=== PATIENT | male | born 1965 | race Caucasian/White ===

== ENCOUNTER 2025-04-17 14:05 | Emergency (ER) | payer MEDICAID ==
[~2025-04-17] VITALS: Ht 165.1 cm; Wt 82.0 kg
[2025-04-17 14:11] VITALS: TEMP 95.9
--- NOTE | 2025-04-17 14:15 | Physician Documentation ---
History of Present Illness ~ Stated Complaint: SZ Time Seen by MD: 14:14 HPI 59-year-old male with a history of seizure disorder. presenting with a reported seizure. Per EMS, the patient arrives from the [place], had a witnessed tonic-clonic seizure for several minutes. The patient reported a history of seizures, states he has a seizure every couple of months. He is not on seizure medications. Blood glucose was in the 80s. Here in the ED, he reports feeling nauseous. He denies having a headache. No head or neck injury. He did not bite his tongue. He denies any fevers or infectious symptoms. No abdominal pain. He does drink alcohol regularly but denies any history of withdrawal. Medication Reconciliation Allergies: Coded Allergies: No Known Allergies (Unverified , 04/17/25) Review of Systems Constitutional: Denies: fever Gastrointestinal: Reports: nausea; Denies: abdominal pain Physical Exam Physical Exam General: This is a disheveled middle-aged man lying quietly in the bed HEENT: Atraumatic, oropharynx is moist. No tongue laceration or tongue fasciculations Heart: Regular rate and rhythm, normal-appearing peripheral perfusion Lungs: Clear breath sounds bilateral, no significant wheezing, normal work of breathing, normal oxygen saturation on room air Abdomen: Soft, nondistended Extremities: No traumatic findings to the extremities Neuro: Alert and oriented to self and location, moves all extremities, follows commands Progress Results/Orders Results/Orders Orders - CLAUDINE NAIDU MD Potassium Cl 20meq In 1/2 Ns (Potassium (04/17/25 15:45) Ketorolac Trometh 15mg/Ml Vial (Toradol (04/17/25 17:45) Potassium Cl Sr Tablet (K-Dur Tablet) (04/17/25 17:45) Completed Orders - CLAUDINE NAIDU MD Ondansetron Inj. (Zofran 4mg/2ml Vial) (04/17/25 14:35) Cbc/Diff (04/17/25 14:32) CMP (04/17/25 14:32) Drug Screen, Urine (04/17/25 14:32) Ethanol (04/17/25 14:32) Normal Saline 1000ml (0.9% Sodium Chlori (04/17/25 15:45) MG (04/17/25 14:28) Medications Received in ER Medications (Trade) Dose Ordered Sig/Karla Route PRN Reason Start Time Stop Time Status Last Admin Dose Admin (Zofran 4mg/2ml vial) 4 mg ONCE ONCE IV 04/17/25 14:35 04/17/25 14:36 DC 04/17/25 14:39 4 MG Sodium Chloride 1,000 ml @ 1,000 mls/hr ONCE ONCE IV 04/17/25 15:45 04/17/25 16:44 DC 04/17/25 15:49 1,000 MLS/HR Potassium Chloride/Sodium Chloride 1,000 ml @ 100 mls/hr Q10H IV 04/17/25 15:45 04/17/25 16:27 100 MLS/HR Vital Signs 04/17/25 04/17/25 04/17/25 04/17/25 14:11 15:15 15:52 16:33 Temp 95.9 Pulse 62 86 67 Resp 16 15 30 16 B/P (MAP) 110/66 144/80 (101) 135/90 (105) Pulse Ox 92 98 97 O2 Flow Rate 0 0 Laboratory Tests Test 04/17/25 14:26 04/17/25 14:28 04/17/25 16:31 Glucometer 88 White Blood Count 4.7 Red Blood Count 3.79 L Hemoglobin 13.1 L Hematocrit 37.0 L Mean Corpuscular Volume 97.5 Mean Corpuscular Hemoglobin 34.6 H Mean Corpuscular Hemoglobin Concent 35.5 Red Cell Distribution Width 14.1 Platelet Count 280 Mean Platelet Volume 7.5 Neutrophils (%) (Auto) 42.9 Lymphocytes (%) (Auto) 44.0 Monocytes (%) (Auto) 11.0 Eosinophils (%) (Auto) 1.3 Basophils (%) (Auto) 0.8 Neutrophils # (Auto) 2.0 Lymphocytes # (Auto) 2.1 Monocytes # (Auto) 0.5 Eosinophils # (Auto) 0.1 Basophils # (Auto) 0.0 CBC Comment Sodium Level 145 Potassium Level 2.7 *L Chloride Level 111 H Carbon Dioxide Level 25.3 Anion Gap 9 Blood Urea Nitrogen 8 Creatinine 1.07 Estimated GFR/1.73 m2 70 BUN/Creatinine Ratio 7.5 L Glucose Level 83 Calcium Level 8.7 Magnesium Level 2.1 Total Bilirubin 0.4 Aspartate Amino Transf (AST/SGOT) 27 Alanine Aminotransferase (ALT/SGPT) 40 Alkaline Phosphatase 54 Total Protein 6.3 L Albumin 3.3 L Globulin 3.0 Albumin/Globulin Ratio 1.1 Chemistry Comments Ethyl Alcohol Level 230 H Urine Opiates Screen Negative Urine Methadone Screen Negative Urine Fentanyl Screen Negative Urine Barbiturates Screen Negative Urine Phencyclidine Screen Negative Urine Amphetamines Screen Negative Urine Benzodiazepines Screen Negative Urine Cocaine Screen Negative Urine Cannabinoids Screen Positive Drug Screen Comment EKG/XRAY/CT/US/VASC/MRI EKG : Additional Comment I personally interpreted the EKG and this shows: Sinus rhythm, rate 58, QTC 496, right bundle-branch block Medical Decision Making Differential Dx:Considerations: Include: Hyperventilation, Psychogenic seizure, Due to alcohol withdrawl, Due to closed head injury, Due to drug ingestion, Epilepsy-break through Additional Comment The patient presents with a reported seizure. Here in the ED he does not appear postictal, denies any injuries or other significant complaints. Labs show mild hypokalemia and he was given IV and oral potassium. He was also given hydration. After observation, he continued to have no significant complaints and requested to leave. It is unclear whether he had a true seizure, but he does report a history of intermittent seizures and does not seem interested in antiseizure medications. He will be discharged with return precautions. Departure Time of Disposition: 17:45 Disposition: 01 HOME / SELF CARE / HOMELESS Impression: Primary Impression: Alcoholic intoxication Additional Impression: Seizure Condition: Improved Discharge Instructions: Seizure, Adult Referrals: NO PRIMARY CARE PROVIDER (PCP) Education Educated: Patient Educated regarding: diagnosis, need for follow up Signature Scribe Signature: sudeep Attestation: CLAUDINE Bates MD Apr 17, 2025 14:15
[2025-04-17] MEDS: ondansetron/PF 4mg/2ml inj IV ONE (14:39)
[2025-04-17 14:57] LABS: MEAN PLATELET VOLUME 7.5 FL (7.4-10.4); RED CELL DISTRIBUTION WIDTH 14.1 % (11.5-14.5)
[2025-04-17 15:24] LABS: CREATININE 1.07 MG/DL (0.60-1.10); ETHANOL 230 MG/DL (<10); TOTAL CARBON DIOXIDE 25.3 MMOL/L (24-32); eCRCL 63 ML/MIN; eGFR 70 ML/MIN
[2025-04-17] MEDS: normal saline 1000ml 1,000 ML IV ONE (15:49)
[2025-04-17] MEDS: potassium cl 20mEq in 1/2 NS 1,000 ML IV SCH (16:27)
--- NOTE | 2025-04-17 17:30 | ELECTROCARDIOGRAPH REPORT ---
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
[2025-04-17 17:36] LABS: URINE AMPHETAMINE SCREEN NEGATIVE (Neg); URINE BARBITUATE SCREEN NEGATIVE (Neg); URINE BENZODIAZEPINES SCREEN NEGATIVE (Neg); URINE CANNABINOID SCREEN POSITIVE (Neg); URINE COCAINE SCREEN NEGATIVE (Neg); URINE METHADONE SCREEN NEGATIVE (Neg); URINE OPIATE SCREEN NEGATIVE (Neg); URINE PHENCYCLIDINE SCREEN NEGATIVE (Neg)
[2025-04-17] MEDS: potassium Cl 20 mEq SR tablet PO STA (18:02)
[2025-04-17] MEDS: ketorolac trometh 15mg/ml vial 15 MG/ML ML IV ONE (18:03)
[2025-04-17 18:48] VITALS: BP 146/82; PULSE 78; RESP 17; O2SAT 95
== END 2025-04-17 18:51 | disposition home or self-care (01) ==
LOC: ER 14:06
DX: G40.909 Epilepsy, unspecified, not intractable, without status epilepticus (principal); F10.129 Alcohol abuse with intoxication, unspecified; R11.0 Nausea; Y90.9 Presence of alcohol in blood, level not specified
CPT/HCPCS: 36415; 80053; 80305; 80320; 82948; 83735; 85025; 93005; 96361; 96365; 96375; 99285; J1885; J2405; J3480; J7030

== ENCOUNTER 2025-04-21 07:36 | Inpatient (IN) | payer MEDICAID ==
[2025-04-21] VITALS (15 sets, daily range): BP systolic 94–121; BP diastolic 65–72; PULSE 73–98; RESP 22–42; TEMP 97.1–97.8; O2SAT 91–100
[~2025-04-21] VITALS: Ht 167.6 cm; Wt 67.0 kg
--- NOTE | 2025-04-21 07:40 | Physician Documentation ---
History of Present Illness General Chief Complaint: Shortness of Breath Stated Complaint: COPD Time Seen by MD: 07:40 OK to notify your PCP?: No Source: patient, RN/MD, EMS, RN notes reviewed Mode of Arrival: EMS Exam Limitations: no limitations History of Present Illness Initial Comments 59-year-old male, with a history of COPD and continuing tobacco abuse, presents via EMS from a local homeless longterm with complaints of shortness of breath that began on 0500 this morning. Patient has taken his normal inhalers without improvement. Additionally he has had an increased cough today but otherwise has been feeling well for the last few days. He also reports a history of anxiety. He denies any chest pain or fever. Medication Reconciliation Allergies: Coded Allergies: No Known Allergies (Unverified , 04/21/25) Miscellaneous Medications Albuterol Sulfate/Budesonide (Airsupra 90-80 Mcg Inhaler), (Reported) Past Medical History Past Medical History: COPD Past Surgical History: noncontributory Smoking: Cigarettes Lives In: Homeless Review of Systems All Other Systems at this time: Reviewed and Negative ROS shortness of breath as well as other positive symptoms as stated above in the HPI, otherwise all systems are reviewed and negative. Physical Exam Physical Exam Vital Signs: RN Vital Signs have been reviewed: Yes Pulse Oximetry Reflects: adequate oxygenation Physical Exam VITALS: Reviewed and as above. GENERAL: Alert, moderate respiratory distress. HEENT: Normocephalic, atraumatic, PERRL, EOMI, dry mucosa RESPIRATORY: Moderate respiratory distress, expiratory wheezing, diminished breath sounds. CHEST: No accessory muscle use, slight sternal retractions CV: Tachycardic, regular rhythm, no edema, no murmur, No: JVD GI: Soft, non-tender, bowels sounds present, no rebound, guarding, or rigidity MUSCULOSKELETAL: No deformities, no edema SKIN: Warm and dry, no rash NEURO: Oriented x4, No motor or sensory deficit PSYCH: Very anxious mood and affect, no agitation Progress Progress Note 0930: Reevaluation: somewhat improved after treatment. Remains tachypneic with diminished breath sounds. 0935: Hospitalist paged. 0945: Case discussed with internal medicine resident, who agrees to evaluate the patient for admission. Results/Orders Reviewed/noted all lab results: Yes Results/Orders Orders - GERMAIN AN MD Electrocardiogram (04/21/25 07:43) Chest,Single View (04/21/25 07:43) Cont Nebulizer Treatment (04/21/25 07:50) Page Hospitalist (04/21/25 09:35) Fill Out Med Reconciliation (04/21/25 09:35) Completed Orders - OHLFS,GERMAIN Bashir MD Electrocardiogram (04/21/25 07:43) Cbc/Diff (04/21/25 07:43) Chest,Single View (04/21/25 07:43) BMP (04/21/25 07:43) Methylprednisolone Sod Succ (Solumedrol (04/21/25 07:45) Magnesium Sulf-Water 2g/50ml (Magnesium (04/21/25 07:45) Normal Saline 1000ml (0.9% Sodium Chlori (04/21/25 07:45) Ipratropium Nebule (Atrovent Nebule) (04/21/25 07:50) Albuterol 2.5mg/3ml Nebule (Proventil 2. (04/21/25 07:50) Lorazepam Tablet (Ativan Tablet) (04/21/25 09:10) Hs Troponin I W Calculations (04/21/25 09:35) PBNP (04/21/25 07:48) C-Reactive Protein (04/21/25 07:48) Vital Signs 04/21/25 04/21/25 04/21/25 07:39 07:57 08:59 Temp 97.3 Pulse 98 98 91 Resp 18 26 28 B/P (MAP) 146/93 Pulse Ox 100 99 Laboratory Tests Test 04/21/25 07:48 White Blood Count 10.3 Red Blood Count 3.99 L Hemoglobin 13.5 L Hematocrit 39.5 L Mean Corpuscular Volume 98.9 H Mean Corpuscular Hemoglobin 33.8 H Mean Corpuscular Hemoglobin Concent 34.1 Red Cell Distribution Width 14.5 Platelet Count 365 Mean Platelet Volume 8.0 Neutrophils (%) (Auto) 68.3 Lymphocytes (%) (Auto) 18.1 L Monocytes (%) (Auto) 12.8 H Eosinophils (%) (Auto) 0.1 Basophils (%) (Auto) 0.7 Neutrophils # (Auto) 7.0 Lymphocytes # (Auto) 1.9 Monocytes # (Auto) 1.3 H Eosinophils # (Auto) 0.0 Basophils # (Auto) 0.1 CBC Comment Sodium Level 144 Potassium Level 3.6 Chloride Level 108 H Carbon Dioxide Level 24.1 Anion Gap 12 Blood Urea Nitrogen 17 Creatinine 1.39 H Estimated GFR/1.73 m2 52 BUN/Creatinine Ratio 12.2 Glucose Level 114 H Calcium Level 9.5 Troponin I High Sensitivity 25 C-Reactive Protein 0.10 Pro-B-Type Natriuretic Peptide 1103 H Albumin 3.8 Procalcitonin < 0.05 Chemistry Comments EKG/XRAY/CT/US/VASC/MRI EKG : Additional Comment 0743: EKG interpreted by myself to show sinus tachycardia at a rate of 111 bpm. RBBB, LPFB, nonspecific ST changes, right axis deviation. Chest X-Ray : Additional Comments CHEST RADIOGRAPH Indication: SEPSIS Technique: Single frontal view of the chest was obtained Comparison: None FINDINGS: The cardiac silhouette is unremarkable. The lungs demonstrate perihilar airspace opacities. The pulmonary vasculature is prominent. There is no pleural effusion. There is no pneumothorax. Aortic atherosclerotic disease. IMPRESSION: vascular congestion and bilateral perihilar airspace opacities.Pulmonary Reviewed by myself. Heart Score: Heart Score Response (Comments) Value History Slightly Suspicious 0 EKG Repolarization Disturb 1 Age 45-64 1 Risk Factors No known risk factors 0 Troponin Normal limit 0 Total 2 Medical Decision Making Additional info obtained from: old records (no prior visits) Findings The patient is a 59-year-old male with a history of COPD who presents with shortness of breath and wheezing the patient was given nebulized albuterol and ipratropium in the emergency department patient was given IV steroids and IV magnesium. The patient continued to have hypoxia after treatments in the emergency department with oxygen saturations dropping down in the 80s 90s. Patient was in mild distress. The patient has no evidence of pneumonia on his chest x-ray the patient is chest x-ray was independently interpreted by me which demonstrated a normal cardiac silhouette normal mediastinum and normal-appearing lung bangura. His EKG was interpreted by me. His manager cardiac cath was interpreted as a sinus rhythm and in his pulse oximetry was interpreted as low and inadequate. Other etiologies were considered including cardiovascular disease the patient's cardiac enzymes and EKG were nonischemic. The patient has a improved but still remained somewhat hypoxic and would benefit from admission the patient will be admitted to the hospitalist case has been discussed with the hospitalist prior hospitalizations have been reviewed. Radiologist's interpretation of the x-ray was reviewed there was some discussion of per hilar opacities I do not believe the patient has a clinical pneumonia based on the imaging. The patient did require a continuous nebulization due to as moderate to severe respiratory distress initially the patient did require critical care time. Departure Time of Disposition: 09:40 Disposition: ADMITTED INPATIENT Admitted to Inpatient Unit: yes, to hospitalist Impression: Primary Impression: COPD exacerbation Condition: Fair Education Educated: Patient Educated regarding: diagnosis, treatment Critical Care Note Total Time (mins): 35 Critical Care Note The very real possibility of a deterioration of this patient's condition required the highest level of my preparedness for sudden, emergent intervention. I provided critical care services, which included medication orders, frequent reevaluations of the patient's condition and response to treatment, ordering and reviewing test results, and discussing the case with various consultants. Excludes time spent performing separately billable procedures. The critical care time associated with the care of the patient was 35 minutes excluding all other billable procedures. Signature Scribe Signature: Scribed for Germain An MD by Carlo Newman . 04/21/25 07:55 Attestation: The note accurately reflects work and decisions made by me.Germain An MD 04/22/25 06:57 GERMAIN AN MD Apr 21, 2025 07:40 CARLO RIVAS Apr 21, 2025 08:02
[2025-04-21] MEDS: normal saline 1000ML IV soln IVB ONE (07:53)
[2025-04-21] MEDS: magnesium sulf-water 2g/50mL 50 ML IV ONE (07:53)
[2025-04-21] MEDS: ipratropium 0.5 MG/2.5ML nebule IH ONE (07:55)
[2025-04-21] MEDS: albuterol 2.5 MG/3 ML nebule CONTNEB PRN (07:55)
[2025-04-21 08:13] LABS: CREATININE 1.39 MG/DL (0.60-1.10); TOTAL CARBON DIOXIDE 24.1 MMOL/L (24-32); eCRCL 50 ML/MIN; eGFR 52 ML/MIN
[2025-04-21 08:15] LABS: MEAN PLATELET VOLUME 8.0 FL (7.4-10.4); RED CELL DISTRIBUTION WIDTH 14.5 % (11.5-14.5)
--- NOTE | 2025-04-21 08:19 | RADIOLOGY REPORT ---
CHEST RADIOGRAPH Indication: SEPSIS Technique: Single frontal view of the chest was obtained Comparison: None FINDINGS: The cardiac silhouette is unremarkable. The lungs demonstrate perihilar airspace opacities. The pulmo nary vasculature is prominent. There is no pleural effusion. There is no pneumothorax. Aortic atheros clerotic disease. IMPRESSION: vascular congestion and bilateral perihilar airspace opacities.Pulmonary
--- NOTE | 2025-04-21 08:40 | ELECTROCARDIOGRAPH REPORT ---
[facility] Test Date: 2025-04-21 Test Time: 07:43:33 Pat Name: RAMAKRISHNA MATHIAS Department: EMERGENCY ROOM Room: ORTHO [facility] Gender: M [place] Constable: JACKIE : 1965 Requested By: GERMAIN FAN Order Number: [id number] Reading MD: Dr. Victor Manuel Oconnor Measurements Intervals [place] Rate: 111 P: 0 LA: 0 QRS: 96 QRSD: 144 T: 49 QT: 387 QTc: 526 Interpretive Statements Atrial flutter RBBB and LPFB Electronically Signed On 04-21-2025 19:35:[address] Victor Manuel Oconnor Please click the below link to view image of tracing.
[2025-04-21 10:48] LABS: PRO BRAIN NATRIURETIC PEPTIDE 1103 PG/ML (0-125)
[2025-04-21] MEDS ORDERED: magnesium hydroxide 30ml (MOM) UD suspension PO PRN (11:25)
[2025-04-21] MEDS ORDERED: magnesium sulf-water 2g/50mL 50 ML IV PRN (11:25)
[2025-04-21] MEDS ORDERED: potassium Cl 20 mEq SR tablet PO PRN ×2 (11:25)
[2025-04-21] MEDS ORDERED: potassium Cl 40MEQ/1/2NS 520ml 520 ML IV PRN (11:25)
[2025-04-21] MEDS ORDERED: magnesium sulf-water 4G/100mL 100 ML IV PRN (11:25)
[2025-04-21] MEDS ORDERED: magnesium Cl slow-release 64mg tablet PO PRN (11:25)
[2025-04-21] MEDS ORDERED: ondansetron/PF 4mg/2ml inj IV PRN (11:25)
[2025-04-21] MEDS: ipratropium 0.5 MG/2.5ML nebule IH SCH (12:00)
[2025-04-21] MEDS: furosemide 10 MG/1 ML 10ml inj IV SCH (12:14)
[2025-04-21] MEDS ORDERED: ALBU10.7 (13:23)
[2025-04-21] MEDS: albuterol 2.5 MG/3 ML nebule NEB PRN (14:47)
[2025-04-21] MEDS: azithromycin/NS 500mg/250ml 250 ML IV SCH (15:30)
--- NOTE | 2025-04-21 17:08 | HISTORY AND PHYSICAL-Residence ---
History & Physical Providers to CC Resident Creating Document: BREANNA MCGHEE RES ~ History of Present Illness Reason for Admit\Complaint: Shortness of breath History of Present Illness This is a 59 year old male patient with a past medical history of COPD, presented to the ER for shortness of breath that started today associated with increased cough with white sputum production. He denies chest pain, palpitation, dizziness or any other respiratory symptoms. The patient is homeless and is currently living at [place]. He was agitated and received IV Ativan in the ER. No other symptoms reported. Allergies: Coded Allergies: No Known Allergies (Unverified , 04/21/25) Home Medications Home Medications Active Reported Airsupra 90-80 Mcg Inhaler (Albuterol Sulfate/Budesonide) 90 Mcg-80 Mcg/Actuation Hfa.aer.ad Past Medical History Past Medical History COPD on albuterol p.r.n. Past Surgical History Surgical History Comment None reported Family History Family History: Patient reports no known family medical history. Past Social History Smoking: Cigarettes (Half a pack a day) Alcohol Use: Occasionally Drug Use: None Lives with: Other (Homeless) Lives In: Homeless Occupation: unemployed ROS All Other Systems: Reviewed and Negative Constitutional: Reports: no symptoms reported Eyes: Reports: no symptoms reported ENT: Reports: no symptoms reported Respiratory: Reports: shortness of breath, SOB with exertion Cardiovascular: Reports: no symptoms reported Gastrointestinal: Reports: no symptoms reported Genitourinary: Reports: no symptoms reported Male Genitalia: Reports: no symptoms reported Neurological: Reports: no symptoms reported Musculoskeletal: Reports: no symptoms reported Integumentary: Reports: no symptoms reported Allergic/Immunologic: Reports: no symptoms reported Hematologic/Lymphatic: Reports: no symptoms reported Endocrine: Reports: no symptoms reported Psychiatric: Reports: no symptoms reported Exam Vitals: Vital Signs Date Time Temp Pulse Resp B/P (MAP) Pulse Ox O2 Delivery O2 Flow Rate FiO2 04/21/25 16:53 76 36 97 Room Air* 0 21 04/21/25 13:40 97.1 121/71 (88) General: General: Somnolent due to Ativan but responsive, mild respiratory distress HEENT: Conjunctiva pink, Sclera clear, Mucus Membranes moist. Neck: Supple without masses and tenderness. Resp: Tachypnea. Diminished air movement. Coarse crackles bilaterally with sparse wheezing. Heart: Regular Rate and rhythm, normal S1 and S2 without murmur, rub or gallop. Abdomen: Soft and non tender no organomegaly Extremities: No cyanosis,clubbing or edema. Skin: Warm and Dry. Diagnostic Data Last Recorded Lab Results: 04/21/25 0748 04/21/25 0748 Diagnostic Data: Laboratory Tests Test 04/21/25 11:45 D-Dimer 0.23 MG/L FEU (0-0.50) D-Dimer Comment Counseling Services Smoking & Tobacco Cessation: 3-10 Minutes (Patient advised to stop smoking) Advance Care Planning Advanced Care plannin - 30 Minutes (Patient wants to be full code) Additional Plan Assessment and plan 1. Acute CHF exacerbation (unknown EF) 2. Acute COPD exacerbation Assessment NYHA class II Acute pulmonary embolism unlikely - low risk, D-dimer 0.23 Active smoker Shortness of breath associated with increased productive cough No fever, hemoptysis or chest pain WBC 10.3, procalcitonin <0.05, C reactive protein 0.1, Lactic acid 1.0 CXR: Pulmonary vascular congestion and bilateral perihilar airspace opacities. Plan Lasix 40 mg daily Solu-Medrol 62.5mg b.i.d. Albuterol p.r.n. + Atrovent q.4h Incentive spirometry Strict I&O Ordered echocardiogram Ordered A1c, lipid panel 3. Possible acute on chronic kidney injury Cr 1.39, BUN 17 Unknown baseline creatinine Ordered urine lytes Current on Lasix 40 mg daily Monitor daily 4. Adverse social determinants of health Patient is homeless, limited access to healthcare Ordered HIV and hepatitis panel Ordered drug screen Social service consult tomorrow Code Status: Full code DVT prophylaxis: Heparin Analgesia/sedation: Morphine Line/tube: PIV GI prophylaxis: None Nutrition: Heart healthy diet Physical therapy: Yes Prognosis: Guarded Disposition: Admit to ortho floor. Resident attestation The above note has been reviewed and supervised by a senior resident PGY2/PGY3 Patient was seen, examined and discussed with the attending physician Date of Service: Apr 21, 2025 Billing Provider: MONIKA MICHEL MD Common Visit Codes: 58158-[id number] INP/OBS CARE (HIGH) Secondary Visit Codes: [id number] CARE PLAN 30 MINUTES BREANNA MCGHEE RES Apr 21, 2025 17:08 MONIKA MICHEL MD Apr 23, 2025 06:52
[2025-04-21] MEDS: K and/or MAG REPLACEMENT MC SCH (20:00)
[2025-04-21] MEDS: docusate sod 100mg capsule PO SCH (20:46)
[2025-04-21] MEDS: heparin, porcine 5000 units/ml vial SQ SCH (20:48)
[2025-04-22] VITALS (18 sets, daily range): BP systolic 102–135; BP diastolic 61–83; PULSE 66–98; RESP 16–32; TEMP 97.3–98.2; O2SAT 92–98
[2025-04-22 06:07] LABS: MEAN PLATELET VOLUME 7.9 FL (7.4-10.4); RED CELL DISTRIBUTION WIDTH 14.1 % (11.5-14.5)
[2025-04-22 06:32] LABS: CHOL/HDL RATIO 2.2 (0.00-4.99); CREATININE 1.08 MG/DL (0.60-1.10); LDL CHOLESTEROL 57 MG/DL (50-100); TOTAL CARBON DIOXIDE 26.8 MMOL/L (24-32); eCRCL 65 ML/MIN; eGFR 70 ML/MIN
[2025-04-22 06:55] LABS: HIV ANTIBODY 1&2 RAPID NON-REACTIVE (Neg)
[2025-04-22 09:04] LABS: LEUKOCYTE ESTERASE ,URINE NEGATIVE (Neg); NITRITES, URINE NEGATIVE (Neg); OCCULT BLOOD,URINE NEGATIVE (Neg)
[2025-04-22 09:12] LABS: UA COLLECTION TYPE CLN CATCH MIDSTREAM
[2025-04-22 09:25] LABS: URINE AMPHETAMINE SCREEN POSITIVE (Neg); URINE BARBITUATE SCREEN NEGATIVE (Neg); URINE BENZODIAZEPINES SCREEN NEGATIVE (Neg); URINE CANNABINOID SCREEN POSITIVE (Neg); URINE COCAINE SCREEN NEGATIVE (Neg); URINE METHADONE SCREEN NEGATIVE (Neg); URINE OPIATE SCREEN NEGATIVE (Neg); URINE PHENCYCLIDINE SCREEN NEGATIVE (Neg)
[2025-04-22 09:32] LABS: CREATININE,URINE RANDOM 104.0 MG/DL; UA UREA RANDOM 845.0 MG/DL
[2025-04-22 09:48] LABS: OSMOLALITY UA 549.0 MOSM/K (50-1400)
--- NOTE | 2025-04-22 12:40 | PROGRESS NOTE- Residence ---
Progress Note - Resident Providers to CC Resident Creating Document: BREANNA MCGHEE RES ~ Antibiotic Timeout Antibiotic Ordered?: Yes Subjective Patient was seen and examined at the bedside. He states improvement of shortness of breath and resolution of the cough. No chest pain, fever or any other symptoms reported. Objective Vital Signs Date Time Temp Pulse Resp B/P (MAP) Pulse Ox O2 Delivery O2 Flow Rate FiO2 04/22/25 12:10 73 24 Room Air 0.0 21 04/22/25 12:05 95 04/22/25 10:00 98.2 103/61 (75) Result Diagram: 04/22/25 0532 04/22/25 0532 General: Awake and alert, no acute distress HEENT: Conjunctiva pink, Sclera clear, Mucus Membranes moist. Neck: Supple without masses and tenderness. Resp: Unlabored. Diminished air movement. Minimal apical wheezing. Heart: Regular Rate and rhythm, normal S1 and S2 without murmur, rub or gallop. Abdomen: Soft and non tender no organomegaly Extremities: No cyanosis,clubbing or edema. Skin: Warm and Dry. Coagulation Studies Laboratory Tests Test 04/21/25 11:45 D-Dimer 0.23 MG/L FEU (0-0.50) D-Dimer Comment Plan Plan Assessment and plan 1. Acute CHF exacerbation (unknown EF) 2. Acute COPD exacerbation Assessment NYHA class II Acute pulmonary embolism unlikely - low risk, D-dimer 0.23 Active smoker Shortness of breath associated with increased productive cough No fever, hemoptysis or chest pain WBC 10.3, procalcitonin <0.05, C reactive protein 0.1, Lactic acid 1.0 CXR: Pulmonary vascular congestion and bilateral perihilar airspace opacities. Plan Lasix 40 mg daily Solu-Medrol 62.5mg b.i.d. Albuterol p.r.n. + Atrovent q.4h Incentive spirometry Strict I&O Ordered echocardiogram Ordered A1c, lipid panel 04/22/2025 Continue Lasix Continue methylprednisolone and breathing treatment Echo: Normal LV size and wall thickness. Overall systolic function is normal. LVEF is 60-65%. RV is normal size and function. Elevated right heart pressures as noted above. 3. Acute kidney injury - resolved Possibly secondary to renal tubular stasis Cr 1.39, BUN 17 Unknown baseline creatinine Ordered urine lytes Current on Lasix 40 mg daily Monitor daily 04/22/2025 Cr 1.08, BUN 23 Ur Cr 104, UrNa 54, Ur K20, Ur urea 845, Ur Osm 549 Continue Lasix 4. Adverse social determinants of health 5. Amphetamine use disorder Patient is homeless, limited access to healthcare Ordered HIV and hepatitis panel Ordered drug screen 04/22/2025 Drug screen positive for amphetamine and cannabinoid Social service and substance use navigator consult placed HIV negative, pending hepatitis panel Code Status: Full code DVT prophylaxis: Heparin Analgesia/sedation: Morphine Line/tube: PIV GI prophylaxis: None Nutrition: Heart healthy diet Physical therapy: Yes Prognosis: Guarded Disposition: Continue medical therapy. Possible discharge tomorrow. Resident MD attestation The above note has been reviewed and supervised by a senior resident PGY2/PGY3 Patient was seen, examined and discussed with the attending physician Date of Service: Apr 22, 2025 Billing Provider: MONIKA MICHEL MD Common Visit Codes: [id number] INP/OBS CARE(HIGH) BREANNA MCGHEE, RES Apr 22, 2025 12:40 MONIKA MICHEL MD Apr 23, 2025 06:52
--- NOTE | 2025-04-22 13:48 | CARDIOLOGY REPORT ---
APPROVED REPORT EXAM: Comprehensive 2D, Doppler, and color-flow Echocardiogram. 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 181.0 cm/s AoV VTI 33.1 cm AO Peak GR. 13.1 mmHg AO Mean GR. 7 mmHg LVOT VTI 26.41 cm LVOT Peak Abhijeet. 137.9 cm/s MICHELE(VTI)/BSA 2.86 cm2/m2 MICHELE (VTI) 2.86 cm2 Mitral Valve MV E Velocity 107.4 cm/s MV Peak Gr. 6 mmHg MV DECEL TIME 232 ms MV A Velocity 133.2 cm/s MV PHT 56 ms E/A Ratio 0.8 MVA (PHT) 3.93 cm2 MV WPtj198.1 cm/s TDI Lateral E' P. V7.85 cm/s E/Lateral E' 13.7 Tricuspid Valve TR P. Velocity 286 cm/s RAP ESTIMATE 10 mmHg TR Peak Gr. 33 mmHg RVSP 43 mmHg LEFT VENTRICLE Normal LV size and wall thickness. Overall systolic function is normal. Overall LVEF is 60-65%. RIGHT VENTRICLE RV is normal size and function. Estimated PA systolic pressure of 43 mm of mercury. ATRIA The left atrium size is normal. AORTIC VALVE Trileaflet AV appears mildly sclerotic without stenosis. No insufficiency. MITRAL VALVE Moderate MV annular calcification and leaflet thickening without stenosis. Mild regurgitation. TRICUSPID VALVE TV appears structurally normal with trace regurgitation. PULMONIC VALVE Normal PV without stenosis, physiologic insufficiency. GREAT VESSELS The aortic root is normal in size. PERICARDIUM Normal pericardium. No effusion. Other Information Study Quality: Adequate but tds ssn window. Conclusion Normal LV size and wall thickness. Overall systolic function is normal. RV is normal size and function. Estimated PA systolic pressure of 43 mm of mercury. Trileaflet AV appears mildly sclerotic without stenosis. No insufficiency. Moderate MV annular calcification and leaflet thickening without stenosis. Mild regurgitation. TV appears structurally normal with trace regurgitation. Normal PV without stenosis, physiologic insufficiency. Normal pericardium. No effusion.
[2025-04-23] VITALS (7 sets, daily range): BP systolic 127–146; BP diastolic 72–94; PULSE 70–90; RESP 20–22; TEMP 97.3; O2SAT 95–100
[2025-04-23 05:28] LABS: MEAN PLATELET VOLUME 8.0 FL (7.4-10.4); RED CELL DISTRIBUTION WIDTH 13.9 % (11.5-14.5)
[2025-04-23 05:55] LABS: CREATININE 1.00 MG/DL (0.60-1.10); TOTAL CARBON DIOXIDE 29.1 MMOL/L (24-32); eCRCL 70 ML/MIN; eGFR 76 ML/MIN
[2025-04-23] MEDS: mag hydrox/Alum hydrox/simeth 30ml oral suspension PO PRN (07:42)
[2025-04-23 11:12] LABS: HBSAG SCREEN Negative (Negative); HEP B CORE AB, TOT Positive (Negative); HEPATITIS C VIRUS ANTIBODY Reactive (Non Reactive)
[2025-04-23] MEDS ORDERED: FURO-150 PO (12:25)
[2025-04-23] MEDS ORDERED: PRED10TA23 PO (12:25)
--- NOTE | 2025-04-23 19:24 | DISCHARGE SUMMARY-Residence ---
Discharge Summary Providers to CC Resident Creating Document: BREANNA MCGHEE RES ~ Discharge Summary Admission Diagnosis: Shortness of breath Hospital Course DATE OF ADMISSION: 04/21/2025 DATE OF DISCHARGE: 04/23/2025 Chest x-ray: Pulmonary vascular congestion and bilateral perihilar airspace opacities. Echocardiogram: Normal LV size and wall thickness. Overall systolic function is normal. RV is normal size and function. Estimated PA systolic pressure of 43 mm of mercury. Trileaflet AV appears mildly sclerotic without stenosis. No insufficiency. Moderate MV annular calcification and leaflet thickening without stenosis. Mild regurgitation. TV appears structurally normal with trace regurgitation. Normal PV without stenosis, physiologic insufficiency. Normal pericardium. No effusion. Discharge Diagnosis\Comment: 1. Acute HFpEF 2. Acute COPD exacerbation 3. Acute kidney injury - Possibly secondary to renal tubular stasis 4. Adverse social determinants of health 5. Amphetamine use disorder Operations\Procedures: None Consultants: None Complications: None Condition on DC: Stable New Medications: Furosemide (Lasix) 20 Mg Tablet 20 MG PO DAILY for 30 Days, #30 TAB Prednisone (Prednisone) 10 Mg Tablet 2 TABLET PO DAILY for 5 Days, #10 TABLET Continued Medications: Albuterol Sulfate/Budesonide (Airsupra 90-80 Mcg Inhaler) 90 Mcg-80 Mcg/Actuation Hfa.aer.ad Discharge Summary: History of present illness This is a 59 year old male patient with a past medical history of COPD, presented to the ER for shortness of breath that started today associated with increased cough with white sputum production. He denies chest pain, palpitation, dizziness or any other respiratory symptoms. The patient is homeless and is currently living at [facility]. He was agitated and received IV Ativan in the ER. No other symptoms reported. Hospital course 59-year-old male patient admitted for COPD exacerbation and acute CHF, had elevated BNP, chest x-ray signs of pulmonary congestion and wheezing. The patient had no fever and did not need oxygen to maintain normoxemia. He was treated with IV Lasix, Solu-Medrol, azithromycin and albuterol/ipratropium. The patient had significant improvement and today denies any shortness of breath, chest pain or productive cough. Today patient had mild abdominal discomfort which improved after he had a bowel movement. The patient is tolerating oral diet with no nausea, vomiting or diarrhea. Patient is stable to be discharged. Discharge physical exam General: Awake and alert, no acute distress HEENT: Conjunctiva pink, Sclera clear, Mucus Membranes moist. Neck: Supple without masses and tenderness. Resp: Unlabored. Diminished air movement. Minimal apical wheezing. Heart: Regular Rate and rhythm, normal S1 and S2 without murmur, rub or gallop. Abdomen: Soft and non tender no organomegaly Extremities: No cyanosis,clubbing or edema. Skin: Warm and Dry. Discharge medication See below Discharge instructions Follow-up with primary care physician in one week Take Lasix 20 mg daily Take prednisone 20 mg daily for five days Avoid tobacco use Avoid methamphetamine use Come back in case of severe shortness of breath, chest pain, fever, productive cough or any concerning symptoms *Problems/Diagnosis: (1) Heart failure with preserved ejection fraction Status: Chronic (2) Methamphetamine use disorder, mild, abuse Status: Chronic (3) Synthetic cannabinoid use disorder Status: Chronic (4) COPD exacerbation Status: Acute Total Time Spent on D/C: > 30 Minutes Date of Service: Apr 23, 2025 Billing Provider: MONIKA MICHEL MD Common Visit Codes: 71257-CZQ/OBS DISCH DAY >30min BREANNA MCGHEE, RES Apr 23, 2025 19:24 MONIKA MICHEL MD Apr 24, 2025 22:10
== END 2025-04-23 14:43 | disposition home or self-care (01) | DRG 140 ==
LOC: ER 07:37 → ED HOLD 09:55 → MERGE 09:55 → ORTHO 4S 13:30
PROVIDERS: ADMIT Internal Medicine; ATTEND Internal Medicine
DX: J44.1 Chronic obstructive pulmonary disease with (acute) exacerbation (principal); N17.0 Acute kidney failure with tubular necrosis; I50.31 Acute diastolic (congestive) heart failure; F15.90 Other stimulant use, unspecified, uncomplicated; Z59.01 Sheltered homelessness; Z87.891 Personal history of nicotine dependence
CPT/HCPCS: 36415; 71045; 80048; 80053; 80061; 80305; 81003; 82570; 83036; 83605; 83735; 83880; 83930; 83935; 84133; 84145; 84300; 84484; 84540; 85025; 85379; 86140; 86703; 86704; 86803; 87081; 87340; 87522; 93005; 93306; 94640; 94760; 96365; 96367; 96375; 99291; A4615; A4620; A7015; G0378; J0456; J1644; J1938; J2919; J7030

== ENCOUNTER 2025-04-23 16:39 | Inpatient (IN) | payer MEDICAID ==
[~2025-04-23] VITALS: Ht 167.6 cm; Wt 63.0 kg
[~2025-04-23 16:39] MED LIST: ALBU10.7; FURO-150 PO; PRED10TA23 PO
--- NOTE | 2025-04-23 17:29 | ELECTROCARDIOGRAPH REPORT ---
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 MELISSA Roblero Measurements Intervals [place] Rate: 89 P: 61 NH: 113 QRS: 95 QRSD: 122 T: 62 QT: 402 QTc: 490 Interpretive Statements Sinus rhythm Borderline short NH interval RBBB and LPFB Minimal ST elevation, anterior leads Electronically Signed On 04-23-2025 18:03:[address] MELISSA Roblero Please click the below link to view image of tracing.
--- NOTE | 2025-04-23 17:39 | Physician Documentation ---
History of Present Illness ~ Chief Complaint: Shortness of Breath Stated Complaint: SOB Time Seen by MD: 00:47 OK to notify your PCP?: Yes Source: patient, EMS Mode of Arrival: EMS Exam Limitations: no limitations HPI Patient is seen today with complaints of shortness of breath and exacerbation of the COPD. Patient states that he is not able to get his oxygen tanks at the [facility] as he needs them. Patient states he continue smoking tobacco and is known to use methamphetamines. Patient denies any chest pain or abdominal pain or nausea, vomiting, diarrhea. Patient has no other concern or complaint at this time. Patient was brought in by EMS today who stated patient was compla ining of abdominal pain however patient did not complain of any abdominal pain to myself. [facility] BED 8 This patient is a 59 y/o male BIBEMS to ED for shortness of breath. Patient was just recently discharged here for COPD exacerbation today. 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 Recent echocardiogram during admission showed LVEF of 60%. Patient is currently homeless and staying at the [facility]. He states that after he was discharged, he smoked a cigarette and had worsening shortness of breath as well as some dizziness. Patient denies any other associated symptoms at this time. Patient denies any other alleviating or exacerbating factors. Medication Reconciliation Allergies: Coded Allergies: No Known Allergies (Unverified , 04/23/25) Scheduled Furosemide (Lasix), 20 MG PO DAILY Prednisone (Prednisone), 2 TABLET PO DAILY Miscellaneous Medications Albuterol Sulfate/Budesonide (Airsupra 90-80 Mcg Inhaler), (Reported) Past Medical History Past Medical History: Seizures, COPD Past Surgical History: noncontributory Patient History: Patient reports no known family medical history. Smoking Status: Current every day smoker Alcohol Use: None Drug Use: none Review of Systems All Other Systems at this time: Reviewed and Negative ROS As stated in the HPI above, otherwise all other systems have been reviewed and negative. Respiratory: Reports: shortness of breath Physical Exam Vital Signs: RN Vital Signs have been reviewed: Yes, Temperature: 96.1, Source: Temporal, Heart Rate: 91, Respiratory Rate: 24, Pulse Oximetry: 100, Weight: 63.000 Physical Exam General: The patient is well developed, well nourished, nontoxic appearing and is in no acute distress. Skin: [place], warm and dry with no rashes. HEENT: Head was normocephalic and atraumatic. Eyes - pupils equal, round, reactive to light and accommodation. Extraocular movements were intact. Conjunctivae were nonicteric. The mouth and oropharynx were clear with moist mucous membranes. There were no pharyngeal exudates or erythema. Neck: Supple and nontender. There was no jugular venous distention, lymphadenopathy, thyromegaly or masses. Chest: Patient with diminished breath sounds and expiratory wheezing on auscultation. Moderate respiratory distress. No accessory muscle use. No dullness to percussion. Heart: Rate regular and rhythmic. S1, S2. No murmurs. Palpation of the chest wall was normal. No rubs or thrills. Abdomen: Soft, nontender and nondistended. Positive bowel sounds. No guarding or rebound. No hepatosplenomegaly or palpable masses. Extremities: No cyanosis, clubbing or edema. The patient moves all extremities. Pulses were equal and symmetric. Neurologic: Motor and sensation grossly intact. A & O x4. Psychologic: The patient was oriented to person, place and time. Progress Progress Note 0134: Paged hospitalist 0210: Case discussed with hospitalist who agrees to evaluate patient for admission. Results/Orders Results/Orders Orders - DOLORES OCONNOR MD Carvedilol Tablet (Coreg Tablet) (04/24/25 01:05) Abg (Arterial Blood Gas) (04/24/25 ) Mixed Venous (04/24/25 ) Page Hospitalist (04/24/25 01:34) Fill Out Med Reconciliation (04/24/25 01:34) Completed Orders - DOLORES OCONNOR MD Furosemide Inj (Lasix Inj) (04/24/25 01:05) Methylprednisolone Sod Succ (Solumedrol (04/24/25 01:05) Ipratropium/Albuterol Nebule (Ipratrop/A (04/24/25 01:05) Azithromycin/Ns 500mg/250ml (Zithromax/N (04/24/25 01:05) Medications Received in ER Medications (Trade) Dose Ordered Sig/Karla Route PRN Reason Start Time Stop Time Status Last Admin Dose Admin (Lasix inj) 40 mg ONCE ONCE IV 04/24/25 01:05 04/24/25 01:10 DC 04/24/25 01:28 40 MG (SoluMEDROL 125mg inj) 125 mg ONCE ONCE IV 04/24/25 01:05 04/24/25 01:10 DC 04/24/25 01:29 125 MG (ipratrop/ albuterol 0.5-3(2.5) MG/3ml nebule) 3 ml ONCE STAT NEB 04/24/25 01:05 04/24/25 01:10 DC 04/24/25 01:26 3 ML Azithromycin 250 ml @ 250 mls/hr ONCE ONCE IV 04/24/25 01:05 04/24/25 02:04 DC 04/24/25 01:29 250 MLS/HR Vital Signs 04/23/25 04/24/25 04/24/25 04/24/25 17:16 00:07 00:08 01:26 Temp 96.1 Pulse 91 89 75 Resp 24 25 16 Pulse Ox 100 98 99 100 O2 Delivery Nasal Cannula* Nasal Cannula* O2 Flow Rate 3 3.0 3 FiO2 32 32 04/24/25 04/24/25 04/24/25 01:35 02:02 02:02 Temp 97.7 Pulse 70 68 Resp 18 24 24 B/P (MAP) 160/108 (125) Pulse Ox 100 96 O2 Delivery Nasal Cannula* O2 Flow Rate 3 3 FiO2 32 32 Laboratory Tests Test 04/23/25 17:33 04/23/25 19:47 04/23/25 20:28 04/24/25 01:59 White Blood Count 9.3 Red Blood Count 4.27 L Hemoglobin 14.7 Hematocrit 42.0 Mean Corpuscular Volume 98.4 H Mean Corpuscular Hemoglobin 34.3 H Mean Corpuscular Hemoglobin Concent 34.9 Red Cell Distribution Width 13.9 Platelet Count 345 Mean Platelet Volume 8.0 Neutrophils (%) (Auto) 86.4 H Lymphocytes (%) (Auto) 5.8 L Monocytes (%) (Auto) 7.7 Eosinophils (%) (Auto) 0 Basophils (%) (Auto) 0.1 Neutrophils # (Auto) 8.1 H Lymphocytes # (Auto) 0.5 L Monocytes # (Auto) 0.7 Eosinophils # (Auto) 0.0 Basophils # (Auto) 0.0 CBC Comment Sodium Level 141 Potassium Level 4.8 Chloride Level 101 Carbon Dioxide Level 35.0 H Anion Gap 5 L Blood Urea Nitrogen 34 H Creatinine 0.95 Estimated GFR/1.73 m2 81 BUN/Creatinine Ratio 35.8 H Glucose Level 110 H Calcium Level 9.7 Troponin I High Sensitivity 9 9 9 Troponin I High Sens Percent Delta 64 0 0 Troponin I Hi Sens Absolute Change -16 0 0 Pro-B-Type Natriuretic Peptide 1078 H Albumin 3.5 Chemistry Comments Venous Blood pH 7.419 Re-Evaluation Re-evaluation : Bronchodilator Tx Response: moderate relief Re-Evaluation: Improved Progress Patient was seen and examined. Patient is given reassurance. The patient was having difficulty breathing and hypoxic requiring oxygen. Patient was just discharged from the hospital for heart failure as well as COPD exacerbation. Patient was discharged in went to the [facility] and did not realize that the pharmacy was closed at 6:00 p.m.. 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 Laboratory work was obtained CBC was within normal limits no elevated white count slight left shift at 86 no anemia. Blood gas however was reassuring with a VBG and pH of 7.419. Chemistry had negative troponins proBNP elevated at 1078 otherwise chemistries were within normal limits urinalysis is also within normal limits. Patient's x-ray was reassuring without any infiltrates or effusions. Patient received Lasix as well as neb treatments Solu-Medrol and antibiotics. Coreg was ordered however patient later started to develop some bradycardia. Because of the patient's hypoxia patient was then admitted to the hospitalist service for further workup and care. 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 Pulse oximetry monitor interpretation shows 98% on 3 L oxygen, abnormal, my i nterpretation. 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 MELISSA Whaley Measurements Intervals [place] Rate: 89 P: 61 NH: 113 QRS: 95 QRSD: 122 T: 62 QT: 402 QTc: 490 Interpretive Statements Sinus rhythm Borderline short NH interval RBBB and LPFB Minimal ST elevation, anterior leads Electronically Signed On 04-23-2025 18:03:[address] MELISSA Whaley Please click the below link to view image of tracing. EKG Date and Time:04/23/25 1727 Electronically Signed by: MAAME WHALEY MD Date and Time: 04/23/25 1803 NO PRIMARY CARE PROVIDER~ cc: ~ Chest X-Ray : Interpreted By: both Additional Comments [facility] [address] , [place], [place] - [address] DIAGNOSTIC RADIOLOGY Patient: RAMAKRISHNA MATHIAS Medical Record: [id number] [facility] : 1965, Age: 59 Sex: Male Location: ER Patient Status: REG ER Service Date/Time: 04/23/251748 Ordering Physician: GERMAIN FAN MD Exam: CHEST,SINGLE VIEW CHEST RADIOGRAPH Indication: CP Technique: Single frontal view of the chest was obtained Comparison: DI CHEST,SINGLE VIEW on DOS: 04/21/25 FINDINGS: Lines and Tubes: None Lungs: No focal consolidation. Mild hyperinflation of the lungs. Pleura: No effusion. No pneumothorax. Cardiomediastinal contours: Heart size is within normal limits [id number] atherosclerotic calcification and uncoiling of the aorta. Bones: No acute osseous abnormality. IMPRESSION: No acute cardiopulmonary disease. Electronically Signed by:DIANA ALFONSO DO Date & Time: 04/23/251757 Dictated by: DIANA ALFONSO DO Dictation date and time: 04/23/251744 Primary Care Provider: NO PRIMARY CARE PROVIDER cc: GERMAIN FAN MD ~ EDMD DR OCONNOR REVIEWED IMAGING AND AGREES WITH ABOVE FINDINGS Medical Decision Making Additional info obtained from: old records Differential Dx:Considerations: Include: anxiety, asthma, CHF, hypertension, accelerated, hypertension, essential, hypertension, malignant, hyperventilation, hyponatremia, myocardial infarction, panic attack, pneumonia, pulmonary embolism, upper resp. infection, other Departure Time of Disposition: 01:34 Disposition: 09 ADMITTED INPATIENT Admitted to Inpatient Unit: yes, to hospitalist Impression: Primary Impression: COPD exacerbation Additional Impression: Accelerated hypertension Condition: Guarded Referrals: NO PRIMARY CARE PROVIDER (PCP) Education Educated: Patient Educated regarding: diagnosis, need for follow up, other Signature Scribe Signature: Scribed for Dolores Oconnor MD by Glenda Shahid. 04/24/25 01:06 Attestation: The note accurately reflects work and decisions made by me.Dolores Oconnor MD 04/24/25 08:36 QUINTON PLEITEZ PAC Apr 23, 2025 17:39 DOLORES OCONNOR MD Apr 24, 2025 01:05
[2025-04-23 17:55] LABS: MEAN PLATELET VOLUME 8.0 FL (7.4-10.4); RED CELL DISTRIBUTION WIDTH 13.9 % (11.5-14.5)
--- NOTE | 2025-04-23 18:00 | RADIOLOGY REPORT ---
CHEST RADIOGRAPH Indication: CP Technique: Single frontal view of the chest was obtained Comparison: DI CHEST,SINGLE VIEW on DOS: 04/21/25 FINDINGS: Lines and Tubes: None Lungs: No focal consolidation. Mild hyperinflation of the lungs. Pleura: No effusion. No pneumothorax. Cardiomediastinal contours: Heart size is within normal limits [id number] atherosclerotic calci fication and uncoiling of the aorta. Bones: No acute osseous abnormality. IMPRESSION: No acute cardiopulmonary disease.
[2025-04-23 18:02] LABS: CREATININE 0.95 MG/DL (0.60-1.10); PRO BRAIN NATRIURETIC PEPTIDE 1078 PG/ML (0-125); TOTAL CARBON DIOXIDE 35.0 MMOL/L (24-32); eCRCL 73 ML/MIN; eGFR 81 ML/MIN
[2025-04-24] VITALS (9 sets, daily range): BP systolic 112; BP diastolic 83; PULSE 66–91; RESP 16–25; TEMP 97.7; O2SAT 94–100
[2025-04-24] MEDS: ipratropium/albuterol 3ml nebule NEB STA (01:26)
[2025-04-24] MEDS: furosemide 10 MG/1 ML 10ml inj IV ONE (01:28)
[2025-04-24] MEDS: azithromycin/NS 500mg/250ml 250 ML IV ONE (01:29)
[2025-04-24] MEDS ORDERED: HYDROcodone/acetaminophen 10/325mg tab PO PRN (02:35)
[2025-04-24] MEDS ORDERED: HYDROcodone/acetaminophen 5mg/325mg tablet PO PRN (02:35)
[2025-04-24] MEDS ORDERED: magnesium sulf-water 4G/100mL 100 ML IV PRN (02:35)
[2025-04-24] MEDS ORDERED: potassium Cl 20 mEq SR tablet PO PRN ×2 (02:35)
[2025-04-24] MEDS ORDERED: magnesium sulf-water 2g/50mL 50 ML IV PRN (02:35)
[2025-04-24] MEDS ORDERED: magnesium Cl slow-release 64mg tablet PO PRN (02:35)
[2025-04-24] MEDS ORDERED: magnesium hydroxide 30ml (MOM) UD suspension PO PRN (02:35)
[2025-04-24] MEDS ORDERED: mag hydrox/Alum hydrox/simeth 30ml oral suspension PO PRN (02:35)
[2025-04-24] MEDS ORDERED: ondansetron/PF 4mg/2ml inj IV PRN (02:35)
[2025-04-24] MEDS ORDERED: potassium Cl 40MEQ/1/2NS 520ml 520 ML IV PRN (02:35)
--- NOTE | 2025-04-24 03:01 | HISTORY AND PHYSICAL-Residence ---
History & Physical Providers to CC Resident Creating Document: JESSE SALEEM RES ~ History of Present Illness Reason for Admit\Complaint: dizziness, sob History of Present Illness 59 year old patient with a past medical history of COPD, anxiety presented to the ED with complaints of dizziness and shortness of breath that started this evening. The patient has been discharged from the hospital in the evening, [facility], where he suddenly felt dizzy and short of breath . Patient did not fall nor did he lose his consciousness. He also complains of cough with sputum production. He denies chest pain, palpitation, nausea, vomiting, abdominal pain, headache, burning micturition. The patient is homeless and is currently living at [facility]. Allergies: Coded Allergies: No Known Allergies (Unverified , 04/23/25) Home Medications Home Medications Active Prednisone 10 Mg Tablet 2 Tablet PO DAILY 5 Days Lasix (Furosemide) 20 Mg Tablet 20 Mg PO DAILY 30 Days Reported Airsupra 90-80 Mcg Inhaler (Albuterol Sulfate/Budesonide) 90 Mcg-80 Mcg/Actuation Hfa.aer.ad Past Medical History Past Medical History COPD Anxiety Past Surgical History Surgical History Comment No significant surgical history Family History Family History: Patient reports no known family medical history. Past Social History Social History Comment Patient used to smoke two packs per day for almost 40 years Currently smoking one cigarette now and then. Drinks alcohol once in a while mostly beer. Patient [facility]. Patient uses a walker to walk Currently not employed Alcohol Use: None Drug Use: None ROS All Other Systems: Reviewed and Negative ROS All Other Systems: Reviewed and Negative Constitutional: Reports: Reports dizziness Eyes: Reports: no symptoms reported ENT: Reports: no symptoms reported Respiratory: Reports: shortness of breath, SOB with exertion, cough Cardiovascular: Reports: no symptoms reported Gastrointestinal: Reports: no symptoms reported Genitourinary: Reports: no symptoms reported Male Genitalia: Reports: no symptoms reported Neurological: Reports: no symptoms reported Musculoskeletal: Reports: no symptoms reported Integumentary: Reports: no symptoms reported Allergic/Immunologic: Reports: no symptoms reported Hematologic/Lymphatic: Reports: no symptoms reported Endocrine: Reports: no symptoms reported Psychiatric: Reports: no symptoms reported Respiratory: Reports: shortness of breath Exam Vitals: Vital Signs Date Time Temp Pulse Resp B/P (MAP) Pulse Ox O2 Delivery O2 Flow Rate FiO2 04/24/25 02:02 24 04/24/25 02:02 97.7 68 96 3 32 04/24/25 01:35 Nasal Cannula* General: General: Patient alert and awake, oriented to time place person. Not in acute distress. On oxygen 3 L HEENT: Conjunctiva pink, Sclera clear, Mucus Membranes moist. Neck: Supple without masses and tenderness. Resp: Tachypnea. Diminished breath sounds. Mild wheezing present Heart: Regular Rate and rhythm, normal S1 and S2 without murmur, rub or gallop. Abdomen: Soft and non tender no organomegaly Extremities: No cyanosis,clubbing or edema. Skin: Warm and Dry. Diagnostic Data Last Recorded Lab Results: 04/23/25 1733 04/23/25 1733 Additional Plan Acute COPD exacerbation Acute on chronic respiratory failure Currently on 3 L of oxygen WBC-9.3 Lactic acid ordered. Chest x-ray-No acute cardiopulmonary disease. Patient completed three doses of azithromycin, last one today Started patient on ceftriaxone 1 g daily [id number]-74 bid. ,125mg given once in the ED Albuterol/ipratropium-q4h meme albuterol- 2h prn Incentive spirometry Possible syncope- Monitor Orthostatic vitals Echocardiogram done on 04/22- Shows LVEF-60-65%, normal left ventricle size Electrolytes normal No hypoglycemia, glucose 110, HiY7n-3.2 TSH ordered Urine toxicology done, positive for meth and cannabinoids. LDL- 57, chol-124. Code Status: Full code DVT prophylaxis: Heparin Analgesia/sedation: narco Line/tube: PIV GI prophylaxis: None Nutrition: Heart healthy diet Physical therapy: Yes Prognosis: Guarded Jesse Saleem PGY-1 Plan reviewed with bedside team. Patient seen through remote audiovisual assessment through HIPAA compliant setup. All labs, flowsheets, and images reviewed Cumulative nonprocedural care time spent in directed patient care = 30 min Date of Service: Apr 24, 2025 Billing Provider: MUNA PECK MD, PREETHI, RES Apr 24, 2025 03:01 MUNA PECK MD Apr 24, 2025 07:09
[2025-04-24] MEDS ORDERED: albuterol 2.5 MG/3 ML nebule NEB PRN (03:40)
[2025-04-24] MEDS: ipratropium/albuterol 3ml nebule NEB SCH (07:14)
[2025-04-24] MEDS: heparin, porcine 5000 units/ml vial SQ SCH (07:25)
[2025-04-24] MEDS: docusate sod 100mg capsule PO SCH (07:25)
[2025-04-24] MEDS: CefTRIAXone/D5W-Rocephin 1gm 50 ML IV SCH (07:26)
[2025-04-24] MEDS: K and/or MAG REPLACEMENT MC SCH (07:27)
[2025-04-24 07:57] LABS: LEUKOCYTE ESTERASE ,URINE NEGATIVE (Neg); NITRITES, URINE NEGATIVE (Neg); OCCULT BLOOD,URINE NEGATIVE (Neg); UA COLLECTION TYPE CLN CATCH MIDSTREAM
[2025-04-24] MEDS: DOXYCYCLINE 100MG CAPSULE PO SCH (09:23)
--- NOTE | 2025-04-24 17:16 | DISCHARGE SUMMARY-Residence ---
Discharge Summary Providers to CC Resident Creating Document: BREANNA MCGHEE RES ~ Discharge Summary Admission Diagnosis: COPD exacerbation Hospital Course DATE OF ADMISSION: 04/24/2025 DATE OF DISCHARGE: 04/24/2025 Chest x-ray: No acute cardiopulmonary disease. Laboratory Tests Test 04/23/25 17:33 04/23/25 19:47 04/23/25 20:28 04/24/25 01:59 White Blood Count 9.3 X10'3 Red Blood Count 4.27 X10'6 Hemoglobin 14.7 g/dl Hematocrit 42.0 % Mean Corpuscular Volume 98.4 FL Mean Corpuscular Hemoglobin 34.3 PG Mean Corpuscular Hemoglobin Concent 34.9 g/dL Red Cell Distribution Width 13.9 % Platelet Count 345 X10'3 Mean Platelet Volume 8.0 FL Neutrophils (%) (Auto) 86.4 % Lymphocytes (%) (Auto) 5.8 % Monocytes (%) (Auto) 7.7 % Eosinophils (%) (Auto) 0 % Basophils (%) (Auto) 0.1 % Neutrophils # (Auto) 8.1 X10'3 Lymphocytes # (Auto) 0.5 X10'3 Monocytes # (Auto) 0.7 X10'3 Eosinophils # (Auto) 0.0 X10'3 Basophils # (Auto) 0.0 X10'3 CBC Comment Sodium Level 141 MMOL/L Potassium Level 4.8 MMOL/L Chloride Level 101 MMOL/L Carbon Dioxide Level 35.0 MMOL/L Anion Gap 5 Blood Urea Nitrogen 34 MG/DL Creatinine 0.95 MG/DL Estimated GFR/1.73 m2 81 ML/MIN BUN/Creatinine Ratio 35.8 Glucose Level 110 MG/DL Calcium Level 9.7 MG/DL Troponin I High Sensitivity 9 ng/L 9 ng/L 9 ng/L Troponin I High Sens Percent Delta 64 % 0 % 0 % Troponin I Hi Sens Absolute Change -16 ng/L 0 ng/L 0 ng/L Pro-B-Type Natriuretic Peptide 1078 PG/ML Albumin 3.5 G/DL Chemistry Comments Venous Blood pH 7.419 Test 04/24/25 02:50 04/24/25 07:24 04/24/25 07:37 04/24/25 10:16 Potassium Level 3.9 MMOL/L Magnesium Level 2.2 MG/DL Thyroid Stimulating Hormone (TSH) 0.47 ulU/ml Lactic Acid Level 2.1 MMOL/L 2.8 MMOL/L Urine Specimen Description Cln catch midstream Urine Color Straw Urine Clarity Clear Urine pH 6.0 Urine Specific [place] <=1.005 Urine Protein Negative mg/dl Urine Glucose (UA) Negative mg/dl Urine Ketones Negative mg/dl Urine Occult Blood Negative Urine Nitrite Negative Urine Bilirubin Negative Urine Urobilinogen 0.2 E.U/dL Urine Leukocyte Esterase Negative Urine Culture Indicated Not ind Volume Urine Centrifuged 10 ml Urine Comment Test 04/24/25 16:03 Lactic Acid Level 2.6 MMOL/L Discharge Diagnosis\Comment: 1. Acute HFpEF 2. Acute COPD exacerbation 3. Acute kidney injury - Possibly secondary to renal tubular stasis 4. Adverse social determinants of health 5. Amphetamine use disorder Operations\Procedures: None Consultants: None Complications: None Condition on DC: Stable Discharge Summary: History of present illness and Hospital course This is a 59 year old male patient with a past medical history of COPD, presented to the ER on 04/21/2025 for shortness of breath that started suddenly associated with increased cough with white sputum production. He denies chest pain, palpitation, dizziness or any other respiratory symptoms. The patient is homeless and is currently living at [place]. He was agitated and received IV Ativan in the ER. No other symptoms reported. The patient was then admitted for COPD exacerbation and acute CHF, had elevated BNP, chest x-ray signs of pulmonary congestion and wheezing. The patient had no fever and did not need oxygen to maintain normoxemia. He was treated with IV Lasix, Solu-Medrol, azithromycin and albuterol/ipratropium. The patient had significant improvement and was discharged in the morning of 04/23/2025 denying any shortness of breath, chest pain or productive cough. He also had had mild abdominal discomfort which improved after he had a bowel movement. The patient was tolerating oral diet with no nausea, vomiting or diarrhea. He came back later at the same day with complaints of anxiety, dizziness and shortness of breath. Patient did not fall nor did he lose his consciousness. He also complains of cough with sputum production. He denies chest pain, palpitation, nausea, vomiting, abdominal pain, headache, burning micturition. Patient was admitted for observation but * recovered earlier than expected* and is stable to be discharged as on the previous prescribed medications. Discharge physical exam General: Awake and alert, no acute distress HEENT: Conjunctiva pink, Sclera clear, Mucus Membranes moist. Neck: Supple without masses and tenderness. Resp: Unlabored. Diminished air movement. Minimal apical wheezing. Heart: Regular Rate and rhythm, normal S1 and S2 without murmur, rub or gallop. Abdomen: Soft and non tender no organomegaly Extremities: No cyanosis,clubbing or edema. Skin: Warm and Dry. 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
== END 2025-04-24 16:42 | disposition home or self-care (01) | DRG 133 ==
LOC: ER 16:40 → ED HOLD 04-24 02:44
PROVIDERS: ADMIT Internal Medicine Critical Care Medicine; ATTEND Family Medicine
DX: J96.20 Acute and chronic respiratory failure, unspecified whether with hypoxia or hypercapnia (principal); N17.0 Acute kidney failure with tubular necrosis; I50.31 Acute diastolic (congestive) heart failure; I11.0 Hypertensive heart disease with heart failure; J44.1 Chronic obstructive pulmonary disease with (acute) exacerbation; F41.9 Anxiety disorder, unspecified; Z87.891 Personal history of nicotine dependence; Z79.899 Other long term (current) drug therapy
CPT/HCPCS: 36415; 71045; 80048; 81003; 82800; 83605; 83735; 83880; 84132; 84443; 84484; 85025; 93005; 94640; 94760; 99285; G0378; J0456; J0696; J1644; J1938; J2919